=== PATIENT | female | born 1990 | race Caucasian/White ===

== ENCOUNTER 2016-07-07 12:11 | Emergency (ER) | payer OTHER ==
[2016-07-07 13:49] VITALS: BP 132/85
== END 2016-07-07 13:50 | disposition home or self-care (01) ==
LOC: ED 12:11
DX: S93.491A Sprain of other ligament of right ankle, initial encounter (principal); X37.1XXA Tornado, initial encounter; Y93.89 Activity, other specified; Y92.89 Other specified places as the place of occurrence of the external cause; Y99.8 Other external cause status

== ENCOUNTER 2019-10-24 09:46 | Emergency (ER) | payer MEDICAID ==
[~2019-10-24] VITALS: Ht 160 cm; Wt 63.5 kg
[2019-10-24 09:55] VITALS: Ht 160 cm; Wt 63.5 kg
[2019-10-24 10:53] VITALS: BP 108/86
== END 2019-10-24 12:28 | disposition home or self-care (01) ==
LOC: ED 09:46
DX: F45.8 Other somatoform disorders (principal)